=== PATIENT | male | born 1935 | race Caucasian/White ===

== ENCOUNTER 2016-12-15 14:25 | Emergency (ER) | payer OTHER ==
[~2016-12-15] VITALS: Ht 170.2 cm; Wt 73.8 kg
[~2016-12-15 14:25] MED LIST: AMIODARONE HCL200 MG PO; AMLODIPINE BESY10 MG PO; AMLODIPINE BESYL5 MG PO; AMOXICILLIN500 MG PO; Aldactone PO; CORGARD20 MG PO; COUMADIN2.5 MG PO; COUMADIN5 MG PO; Corgard PO; LIPITOR40 MG PO; LISINOPRIL10 MG PO; LOTRISONE15 GM TP; Lipitor PO; NITROGLYCERIN0.4 MG SL; Nitrostat,NitroQuick SL; PROTONIX40 MG PO; Percocet 5/325,Endoc PO; Pradaxa PO; Senokot S,Pericolace PO; WARFARIN SODIU2.5 MG PO; WARFARIN SODIUM5 MG PO; Zestril,Prinivil PO
[2016-12-15 15:18] LABS: HEMATOCRIT 38.9 % (38.0-50.0); MCH 28.1 PG (29.0-34.0); MCHC 32.9 G/DL (30.0-36.0); MCV 85.3 FL (86-99); MEAN PLAT.VOLUME 10.5 uM^3 (9.0-12.4); PLATELET COUNT 205 K/uL (156-360); RBC DIS.WIDTH-SD 52.7 % (39-53); RED BLOOD COUNT 4.56 M/uL (4.00-5.50); WHITE BLOOD COUNT 5.2 K/uL (4.1-10.2)
[2016-12-15 15:20] LABS: EOSINOPHIL (%) 0.4 % (0-5); IMMATURE GRANULOCYTE (%) 0.2 % (0.0-0.7); IMMATURE GRANULOCYTE COUNT 0.1 K/uL; LYMPHOCYTE COUNT 1.1 K/uL (1.0-2.8); MONOCYTE (%) 10.9 % (3-12); MONOCYTE COUNT 0.6 K/uL (0-0.8); NEUTROPHIL (%) 66.5 % (45-76); NEUTROPHIL COUNT 3.5 K/uL (1.8-6.4)
[2016-12-15 15:27] LABS: CHLORIDE 108 mEq/L (99-109); POTASSIUM 4.5 mEq/L (3.7-5.4); SODIUM 143 mEq/L (136-147)
[2016-12-15 15:30] LABS: GLUCOSE 134 mg/dL (70-99)
[2016-12-15 15:31] LABS: ANION GAP 10 MEQ/L (2-14)
[2016-12-15 15:32] LABS: TOTAL BILIRUBIN 0.4 mg/dL (0.0-1.0)
[2016-12-15 15:33] LABS: ALKALINE PHOSPHATASE 94 IU/L (3-129); GFR ESTIMATE (CALCULATED) > 59 mL/min/
[2016-12-15 15:34] LABS: UREA NITROGEN (BUN) 18 mg/dL (9-23)
[2016-12-15 15:47] LABS: INTER. NORMALIZED RATIO 2.6; PROTHROMBIN TIME 27.5 (9.2-11.2)
[2016-12-15 16:00] VITALS: BP 128/63
[2016-12-15 16:31] VITALS: BP 161/76
[2016-12-15 17:00] VITALS: BP 149/76
[2016-12-15 17:13] LABS: TROP-I INTERPRETATION NEGATIVE; TROPONIN-I < 0.01 ng/mL (0.0-0.30)
[2016-12-15 17:30] VITALS: BP 152/73
[2016-12-15 17:33] LABS: ADD MIUA? YES; BILIRUBIN NEGATIVE; BLOOD SMALL; COLOR YELLOW ((YELLOW)); GLUCOSE (STRIP) NEGATIVE; KETONES NEGATIVE; LEUKOCYTES SMALL; NITRITE NEGATIVE; PROTEIN (STRIP) NEGATIVE; SPECIFIC GRAVITY 1.014 (1.000-1.030); UROBILINOGEN 0.2 MG/DL (0.2-1.0)
[2016-12-15 17:43] LABS: BACTERIA RARE /HPF; EPITHELIAL CELLS RARE /HPF; MUCUS NONE SEEN /LPF; RED BLOOD CELLS 0-5 /HPF (0-5); UCUL ADDED? NO
[2016-12-15 18:02] VITALS: BP 165/80
[2016-12-15 18:18] VITALS: BP 128/68
== END 2016-12-15 18:17 | disposition home or self-care (01) ==
LOC: EME 14:25 → EXP 14:25
PROVIDERS: Physician Assistant
DX: R42 Dizziness and giddiness (principal); I10 Essential (primary) hypertension; Z79.01 Long term (current) use of anticoagulants
CPT/HCPCS: 70450; 80053; 81003; 84484; 85025; 85610; 87086; 93005; 99281; 99285

== ENCOUNTER 2018-03-28 11:05 | Emergency (ER) | payer OTHER ==
[~2018-03-28] VITALS: Ht 170.2 cm; Wt 66.1 kg
[2018-03-28 11:26] LABS: HEMATOCRIT 39.9 % (38.0-50.0); HEMOGLOBIN 13.2 G/DL (12.5-16.6); MCH 29.2 PG (29.0-34.0); MCHC 33.1 G/DL (30.0-36.0); MCV 88.3 FL (86-99); PLATELET COUNT 205 K/uL (156-360); RBC DIS.WIDTH-CV 17.5 % (11.8-14.6); RBC DIS.WIDTH-SD 56.7 % (39-53); RED BLOOD COUNT 4.52 M/uL (4.00-5.50); WHITE BLOOD COUNT 8.3 K/uL (4.1-10.2)
[2018-03-28 11:31] LABS: APPEARANCE SL.HAZY ((CLEAR)); BILIRUBIN NEGATIVE; BLOOD NEGATIVE; COLOR AMBER ((YELLOW)); GLUCOSE (STRIP) NEGATIVE; KETONES NEGATIVE; LEUKOCYTES SMALL; NITRITE NEGATIVE; PROTEIN (STRIP) NEGATIVE; SPECIFIC GRAVITY 1.025 (1.000-1.030); UROBILINOGEN 0.2 MG/DL (0.2-1.0)
[2018-03-28 11:38] LABS: ALBUMIN 3.9 g/dL (3.2-4.8); CHLORIDE 109 mEq/L (99-109); POTASSIUM 4.1 mEq/L (3.7-5.4); SODIUM 143 mEq/L (136-147)
[2018-03-28 11:39] LABS: BACTERIA NONE SEEN /HPF; EPITHELIAL CELLS RARE /HPF; MUCUS 4+ /LPF; RED BLOOD CELLS 0-5 /HPF (0-5); UCUL ADDED? YES
[2018-03-28 11:41] LABS: GLUCOSE 106 mg/dL (70-99); TOTAL PROTEIN 7.1 g/dL (6.4-8.3)
[2018-03-28 11:43] LABS: TOTAL BILIRUBIN 1.1 mg/dL (0.0-1.0)
[2018-03-28 11:44] LABS: ALKALINE PHOSPHATASE 92 IU/L (3-129); CREATININE 0.9 mg/dL (0.6-1.3); GFR ESTIMATE (CALCULATED) > 59 mL/min/ (58.99-99999)
[2018-03-28 11:46] LABS: AST (GOT) 62 IU/L (2-34); UREA NITROGEN (BUN) 15 mg/dL (9-23)
[2018-03-28 11:47] LABS: ALT (GPT) 57 IU/L (3-49)
[2018-03-28 15:57] VITALS: BP 166/67
== END 2018-03-28 15:58 | disposition home or self-care (01) ==
LOC: EME 11:05
DX: R10.32 Left lower quadrant pain (principal); K44.9 Diaphragmatic hernia without obstruction or gangrene; K40.91 Unilateral inguinal hernia, without obstruction or gangrene, recurrent; R91.1 Solitary pulmonary nodule; K57.30 Diverticulosis of large intestine without perforation or abscess without bleeding; M54.5 Low back pain; R19.7 Diarrhea, unspecified; Z87.19 Personal history of other diseases of the digestive system; Z87.442 Personal history of urinary calculi; I10 Essential (primary) hypertension; E78.5 Hyperlipidemia, unspecified; I48.0 Paroxysmal atrial fibrillation; Z86.73 Personal history of transient ischemic attack (TIA), and cerebral infarction without residual deficits; Z95.5 Presence of coronary angioplasty implant and graft; Z79.01 Long term (current) use of anticoagulants; Z96.641 Presence of right artificial hip joint; Z82.49 Family history of ischemic heart disease and other diseases of the circulatory system
CPT/HCPCS: 74177; 80053; 81003; 85027; 87086; 99281; 99285